=== PATIENT | female | born 1950 | race African-American/Black ===

== ENCOUNTER 2016-12-22 13:18 | Inpatient (IN) | payer MEDICARE, OTHER ==
[~2016-12-22] VITALS: Ht 172.7 cm; Wt 92.6 kg
--- NOTE | ~2016-12-22 | PR ---
[place], [place] PROGRESS NOTE NAME: CRAIG CULVER [facility] #: [id number] UNIT #: [id number] ROOM: 311 DOCTOR: RAMSES WHITFIELD BIRTHDATE: [birth year] DOS: 12/25/2016 CHIEF COMPLAINT: "This morning I got no sleep last night." SUMMARY OF THE VISIT: Staff report that she did have a good day yesterday and throughout the night, she did well. She is alert and oriented times 3. Mood is appropriate. Affect is appropriate. She did get up this morning and have breakfast, but then went directly back to bed. PLAN: We will check her valproic acid level in the morning just to continue to get baseline labs. Medication adjustments were made yesterday. We will give her chance to adjust to those before making any further changes and continue to try to engage her in individual and villalobos milieu, discharging her to the least restrictive environment as soon as she is psychiatrically stable. Ramses Whitfield NP CM:PNTRANS [phone] RAMSES WHITFIELD 12/25/16 1425 interface
--- NOTE | ~2016-12-22 | PR ---
[place], [place] PROGRESS NOTE NAME: CRAIG CULVER [facility] #: [id number] UNIT #: [id number] ROOM: 311 DOCTOR: RAMSES WHITFIELD BIRTHDATE: [birth year] DOS: 12/24/2016 CHIEF COMPLAINT: This morning "thank you sweetheart." SUMMARY OF THE VISIT: She was seated in the dining room where she was eating breakfast. Her voice is very low tone. She says that she is having dizziness and nausea, that she did not sleep last night. She states that she had a conflict with her roommate. They kept her up last night. She also reports that she has recurrent urinary tract infections. She did receive treatment for urinary tract infection on admission here. She was just started on Trintellix yesterday and given the fact that she just started the Trintellix yesterday and that she had some issues with her roommate last night, it is no wonder if she did not get much sleep. PLAN: We will go ahead and monitor her and see if the Trintellix helps her to get some sleep tonight, perhaps change her room if we have to. She is willing to have cranberry juice on her tray a couple of times a day and so we will talk to dietary about doing that, as far as recurrent urinary tract infections. We will engage her in individual and villalobos milieu and discharge her back to her long-term care facility when she is psychiatrically stable. Ramses Whitfield NP CM:PNSALLIE [phone] RAMSES WHITFIELD 12/24/16 1247 interface
--- NOTE | ~2016-12-22 | PR ---
[place], [place] PROGRESS NOTE NAME: CRAIG CULVER [facility] #: [id number] UNIT #: [id number] ROOM: 311 DOCTOR: RAMSES WHITFIELD BIRTHDATE: [birth year] DOS: 12/30/2016 INTERVAL NOTE. CHIEF COMPLAINT: "I had a bad night." SUMMARY OF THE VISIT: She was seen in the hallway. We went to a quiet place so that she could further explain herself. She stated that she was up and down all night that she did not like the way that the new medication was making her feel. She said that she did not like the way it made her body feel. Staff reports that she was pleasant in the evening, still a little tearful at times and she is still showing some anxiety. Her mood and affect are appropriate. She is denying any audio or visual hallucinations. PLAN: We will discontinue the Klonopin does not seem to be agreeing with her and is actually increasing her anxiety and start her on Ativan 1 mg p.o. straight at bedtime to help her to sleep and to decrease her anxiety. Continue to engage her in individual and villalobos milieu and discharge her to the least restrictive environment when she is psychiatrically stable. Ramses Whitfield NP CM:MARIO [phone] RAMSES WHITFIELD 12/30/16 234 interface
--- NOTE | ~2016-12-22 | PR ---
[place], [place] PROGRESS NOTE NAME: CRAIG CULVER [facility] #: [id number] UNIT #: [id number] ROOM: 311 DOCTOR: RAMSES WHITFIELD BIRTHDATE: [birth year] DOS: 01/02/2017 CHIEF COMPLAINT: "I participated in new groups this weekend." SUMMARY OF THE VISIT: The patient was seated on the side of her bed when I initially walked into the room. She was smiling, greeted me and eventually as we started talking, she started talking about her son and became tearful. Given the past that she feels would have taken care of her and not placed her in the long term and the daughter who was not overly involved. MENTAL STATUS: She is alert and oriented x 3. Her mood is mildly depressed, but she was tearful without any realty tears. She continues to state that she is not sleeping through the night, although staff does state that they see her sleeping. She says that she wakes up and then she starts thinking about her situation. Thoughts are going to her head and she cannot get back to sleep. PLAN: I have increased her Remeron to 22.5. We will also get a valproic acid level since her last one was on the . We are planning to discharge her to [facility] either Monday or Monday. We will continue to engage her in individual and villalobos milieu and discharge her to the least restrictive environment when she is psychiatrically stable. Ramses Whitfield NP CM:PNSALLIE [phone] RAMSES WHITFIELD 01/02/17 1039 interface
--- NOTE | ~2016-12-22 | PR ---
[place], [place] PROGRESS NOTE NAME: CRAIG CULVER [facility] #: [id number] UNIT #: [id number] ROOM: 311 DOCTOR: KIKI MORENO BIRTHDATE: [birth year] DOS: 01/01/2017 CHIEF COMPLAINT: "Good morning." SUMMARY OF VISIT: The patient was assessed in her room where she engaged readily in conversation, readily awoke, states that her sleep is much improved. Appetite is good, feels that her depression is under control, still complaining of underlying anxiety at times. It should be noted that the nurses state that she wakes up several times throughout the night, asking for more Ativan or pain meds, but then within 15-20 minutes she is back to sleep. MENTAL STATUS: Alert and oriented to person, place, approximate time. Mood definitely euthymic. Affect appropriate. No overt signs of auditory or visual hallucinations, delusions, paranoia, supa or hypomania. PLAN: We are going to keep the Ativan where it is at night 1 mg only, this was recently switched from Klonopin. She is on a lot of medications. Definitely some polypharmacy going on. I am trying to keep this as simple as possible, but still keep her symptoms under control. We will continue with Risperdal, Remeron and Depakote. Her most recent valproic acid level was 79.3 and that was on 12/26/2016. Overall, I think she is doing significantly better. She is redirectable, hope is to discharge may be as soon as tomorrow since she had another good night sleep since I changed to Ativan last night. OTTONIEL MORENO CNP CM:PNTRANS [phone] KIKI MORENO 01/02/17 0033 interface
--- NOTE | ~2016-12-22 | PR ---
[place], [place] PROGRESS NOTE NAME: CRAIG CULVER [facility] #: [id number] UNIT #: [id number] ROOM: 311 DOCTOR: KAMERON CRAFT MD BIRTHDATE: [birth year] DOS: 12/28/2016 CHIEF COMPLAINT: "I slept a little better, but I woke up once or twice." SUMMARY OF THE VISIT: The patient was interviewed as she rested in bed. She reported to me that she has been sleeping much better since the Remeron has been added. Her sleep last night; however, was not as good as the previous night and the only change was Benadryl was added which I think caused a paradoxical response. As far as her depression goes, she reports that she is improving day by day, but still feels depressed and overwhelmed. client services account manager report that her insurance policy clerk has noted that she has voiced frustration with her current living situation and feels left out and ignored. She may do better with a different placement. MENTAL STATUS: She is alert and oriented with some time gaps. Mood still is depressed, but improving. There is no supa or hypomania. There are no auditory or visual hallucinations. No delusions or paranoia are present. Memory is fairly well intact. PLAN: I will discontinue Benadryl, maintain Remeron at 15 mg at bedtime, add Rozerem 8 mg at bedtime, continue to engage in individual and villalobos milieu activities with the plan to discharge to the least restrictive environment when psychiatrically stable. KAMERON CRAFT MD CM:PNTRANS [phone] KAMERON CRAFT MD 12/28/161937 interface
--- NOTE | ~2016-12-22 | PR ---
[place], [place] PROGRESS NOTE NAME: CRAIG CULVER [facility] #: [id number] UNIT #: [id number] ROOM: 311 DOCTOR: MEME WHITFIELD BIRTHDATE: [birth year] DOS: 12/27/2016 CHIEF COMPLAINT: This morning, "I am feeling better." SUMMARY OF THE VISIT: She was resting in bed when I came in to visit her. She did awaken easily. States that she is still sad, but pretty much talked to me with her eyes closed lying in the bed. Staff reports that she is doing better, that she has had no complaints of any audio or visual hallucinations. She has had no supa or hypomania. I reviewed her labs that she had this morning, nothing significant is showing on her lab work. Yesterday, the doctor came and discontinued her Trintellix and started her on Remeron at bedtime, also increased her Risperdal. PLAN: We will go ahead and monitor and make sure that those medications are working well for her. The plan is to continue to titrate her Risperdal and her antidepressants to treat her sad mood. We will continue to engage her in individual and villalobos milieu and discharge her to the least restrictive environment hopefully as soon as or Monday when she is psychiatrically stable. Meme Whitfield NP CM:PNSALLIE [phone] MEME WHITFIELD 12/27/16 1146 interface
--- NOTE | ~2016-12-22 | PR ---
[place], [place] PROGRESS NOTE NAME: CRAIG CULVER UNIT #: [id number] ROOM: 311 DOCTOR: KAMERON CRAFT MD BIRTHDATE: [birth year] DOS: 12/29/2016 CHIEF COMPLAINT: "I slept on and off. My depression and anxiety are still there." SUMMARY OF THE VISIT: The patient was interviewed in her bedroom. She was sitting on the edge of the bed waiting for me. She reports that she slept better than she did upon admission, but her sleep was still disturbed and she tossed and turned. She rates her depression as improving, but notes that it is still present and she finds herself ____ most times during the day. She also notes increasing anxiety throughout the day. She is tolerating the current medication regimen well and notes no side effects and is willing to allow me to adjust her medicines accordingly. I did discuss with her the possibility of alternative placement and discussed with her the possibility of going to [facility], which she is open to. I will discuss this further with forensic social worker. MENTAL STATUS: She is alert and oriented with some minor gaps. Mood is overwhelmingly depressed with anxious overtones. She reports that the anxiety is overriding throughout the day. There are select patients on the unit that do tend to get on her nurse per her report and I did discuss with her the fact that I will have nursing monitor this situation. There is no overt supa or hypomania. There are no overt auditory or visual hallucinations. No delusions. No paranoias present. Memory for the most part is intact. PLAN: I will discontinue her Rozerem in lieu of Klonopin 0.5 mg in the morning and 1 mg at bedtime. This should aid sleep as well as decrease her overriding anxiety. I will maintain her current antidepressant regimen. I will discuss with forensic social worker the possibility of alternative placement. She did say she is open to the possibility of leaving here and going to some place such as [facility] where there is a younger subpopulation there that she can interact with. We will continue to engage her in individual and villalobos milieu activity with the plan to discharge to the least restrictive environment when psychiatrically stable. [place], [place] PROGRESS NOTE NAME: ABIOLACRAIG Nguyen UNIT #: [id number] ROOM: [facility] DOCTOR: KAMERON CRAFT MD BIRTHDATE: [birth year] KAMERON CRAFT MD CM:PNTRANS [phone] KAMERON CRAFT MD 12/29/16 1354 interface
--- NOTE | ~2016-12-22 | PR ---
[place], [place] PROGRESS NOTE NAME: CRAIG CULVER [facility] #: [id number] UNIT #: [id number] ROOM: 311 DOCTOR: KIKI MORENO BIRTHDATE: [birth year] DOS: 12/31/2016 CHIEF COMPLAINT: "Good morning." SUMMARY OF VISIT: The patient was assessed in her room where she was sleeping soundly. She woke easily engaged in conversation stated that she actually slept pretty good last night. This was confirmed by nursing. Apparently, the Klonopin had been discontinued and changed over to 1 mg of Ativan and this is the first time that she has significant amount of sleep last night apparently 9 hours' worth. The patient states appetite is good. Depression seems to be improving. MENTAL STATUS: The patient is alert and oriented to person, place, approximate time. Mood trending towards euthymic. Affect is appropriate. No overt signs of auditory or visual hallucinations, delusions, paranoia, supa or hypomania. PLAN: Again, take 1 mg of Ativan at bedtime, seems to have helped with her sleep and her anxiety since she is bipolar. I am going to continue with this medication for now, we will continue to try to engage in individual and villalobos milieu therapy. I would like to try to simplify some of her medications if possible. She is currently on 28 different medications between the Risperdal, which is helping with her bipolar mood lability, psychosis and the Remeron should be helping with some sleep along with the Ativan, I see in Depakote as well. We will need to make sure we have a current valproic acid level in her. Also, see how she does over the next 24 hours, get a couple good night sleep and then look and see if there is a way that we can simplify some other meds if possible. OTTONIEL MORENO CNP CM:MARIO 0 2 KIKI MORENO 01/01/17210 interface
--- NOTE | ~2016-12-22 | WRIGHTHP ---
[place], [place] PATIENT HISTORY AND PHYSICAL EXAM NAME: TIMUR CULVERKWADWO Patrick UNIT #: [id number] ROOM: 311 DOCTOR: KAMERON WELLINGTON MD BIRTHDATE: [birth year] DOS: 12/23/2016 INITIAL PSYCHIATRIC EVALUATION CHIEF COMPLAINT: "Oh Dr. Wellington, I have just been so depressed, it has been at least a month." HISTORY OF PRESENT ILLNESS: This is a 66-year-old black female who is well known to me from her stay at [facility]. The patient has a lengthy history of schizoaffective disorder and has a significant history of auditory and visual hallucinations as well as paranoia. However, most recently, she has been increasingly depressed with difficulty falling asleep, sustaining sleep and waking up early. She also endorses anergia, anhedonia, hopeless, helpless feelings, crying spells, and inability to cope. The staff at the [facility] have noticed a substantial decline in her ADLs and her overall ability to relate to others. Given the severity of her decline, it was felt that inpatient stabilization was warranted to prevent harm to self or others. PAST MEDICAL HISTORY: Significant for chronic pain syndrome, cervical, thoracic disk displacement, hypertension, GERD, osteoarthritis. MENTAL STATUS: The patient is alert and oriented to person, place, and time. Mood is overwhelmingly depressed. Affect is flat, blunted, and constricted and she endorses multiple neurovegetative symptoms. There is a slight hint of paranoia and she endorses some hallucinations, but was very guarded to give me any further information about them. There certainly is no hypomania or supa. Memory is actually fairly well intact. DIAGNOSIS: Schizoaffective disorder. PLAN: I have maintained her on Risperdal, which she has been doing quite well at the assisted. I added Trintellix 10 mg at bedtime to combat the depression. She tolerated this well last night and reports no side effects upon awakening, so I will increase the Trintellix dose to 20 mg at bedtime and monitor. We will have her engage in individual and villalobos milieu activities with the ultimate plan to return back to [facility] when psychiatrically stable. [place], [place] PATIENT HISTORY AND PHYSICAL EXAM NAME: ABIOLACRAIG UNIT #: [id number] ROOM: [facility] DOCTOR: KAMERON WELLINGTON MD BIRTHDATE: [birth year] KAMERON WELLINGTON MD CM:HISPHYS:PATIENT HISTORY AND PHYSICAL EXAMINATION [phone] KAMERON WELLINGTON MD 12/23/16 1053 interface
--- NOTE | ~2016-12-22 | PR ---
[place], [place] PROGRESS NOTE NAME: CRAIG CULVER [facility] #: [id number] UNIT #: [id number] ROOM: 311 DOCTOR: KAMERON WELLINGTON MD BIRTHDATE: [birth year] DOS: 12/26/2016 CHIEF COMPLAINT: "Oh Dr. Wellington, I need help, I am not sleeping at night and I am still so depressed." SUMMARY OF THE VISIT: The patient was interviewed in the dining area. She reported to me that she is having an extreme difficult time sleeping. She notes difficulty falling asleep, staying asleep and waking up early and when she is awake and she cannot fall back to sleep, needless to say when she does wake up to start the day she is extremely fatigued. She feels hopeless and helpless and was on the verge of tears as I interviewed her. She does admit to fleeting suicidal thoughts and fears that if things do not turn around, she has no hope to get better. She is willing to allow me to adjust her medications accordingly. MENTAL STATUS: She is alert and oriented. Mood does seem to be overwhelmingly depressed, and she is very despondent. She endorses multiple neurovegetative symptoms. There is no hypomania or supa noted. There is some mild paranoia noted. She convincingly denies medication side effects. PLAN: At this point, I will go ahead and discontinue the Trintellix since it does not seem to be impacting positively on her mood. Instead, I will start Remeron 15 mg at bedtime as a more sedating antidepressant. I will also increase her Risperdal from 1 mg twice daily to 1 mg in the morning and 2 mg at night, increasing the nighttime dose of medications to attempt to break the cycle of not sleeping and also impact positively on her mood. We will engage her in individual and villalobos milieu activity with the ultimate plan to return back to [facility] when psychiatrically stable. KAMERON WELLINGTON MD CM:PNTRANS [phone] KAMERON WELLINGTON MD 12/26/16 1723 interface
[2016-12-22] MEDS ORDERED: ASPIRIN81 MG PO (13:48)
[2016-12-22] MEDS ORDERED: CLARITIN10 MG PO (13:49)
[2016-12-22] MEDS ORDERED: B-121000 MCG PO (13:50)
[2016-12-22] MEDS ORDERED: DEPAKOTE250 MG PO (13:52)
[2016-12-22] MEDS ORDERED: DEPAKOTE500 MG PO (13:53)
[2016-12-22] MEDS ORDERED: LAMICTAL100 MG PO (13:55)
[2016-12-22] MEDS ORDERED: MICROZIDE12.5 M1 PO (13:55)
[2016-12-22] MEDS ORDERED: PROTONIX40 MG PO (13:56)
[2016-12-22] MEDS ORDERED: MULTIVITAMIN1 TAB PO (13:56)
[2016-12-22] MEDS ORDERED: TRAMADOL HYDRO100 MG PO (13:57)
[2016-12-22] MEDS ORDERED: RISPERDAL1 M1 PO (13:58)
[2016-12-22] MEDS ORDERED: LOPRESSOR25 MG PO (13:59)
[2016-12-22] MEDS ORDERED: POTASSIUM CHLO20 ME3 PO (14:00)
[2016-12-22] MEDS ORDERED: MECLIZINE HCL12.5 MG PO (14:00)
[2016-12-22] MEDS ORDERED: COLACE100 MG PO (14:01)
[2016-12-22] MEDS ORDERED: IBUPROFEN600 MG PO (14:01)
[2016-12-22] MEDS ORDERED: CALCIUM + VITA1 EAC2 PO (14:03)
[2016-12-22 17:54] VITALS: BP 140/86
[2016-12-22 18:43] LABS: HEMOGLOBIN A1c 5.7 % (4.8-5.6)
[2016-12-22 18:46] LABS: ALBUMIN 3.4 gm/dl (3.1-4.5); BILIRUBIN, TOTAL 0.2 mg/dl (0.2-1.0); POTASSIUM 4.1 mmol/L (3.5-5.1); TOTAL PROTEIN 6.8 gm/dL (6.4-8.2)
[2016-12-22 19:01] VITALS: BP 140/86
[2016-12-22 19:05] LABS: BASO % 0.4 % (0.0-1.0); EOS # 0.1 10*3/uL (0.0-0.4); EOS % 1.6 % (1.0-4.0); HEMATOCRIT 42.2 % (37.0-47.0); HEMOGLOBIN 13.8 g/dl (12.0-16.0); IG # 0.1 10*3/uL (0.0-0.1); LYMPH # 2.3 10*3/uL (1.3-4.4); LYMPH % 34.2 % (27.0-41.0); MEAN CELL VOLUME 94.2 fl (81.0-99.0); MEAN CORPUSCULAR HGB 30.8 pg (27.0-31.0); MEAN CORPUSCULAR HGB CONC 32.7 g/dl (33.0-37.0); MEAN PLATELET VOLUME 9.6 fl (9.6-12.3); MONO # 0.6 10*3/uL (0.1-1.0); MONO % 8.5 % (3.0-9.0); NEUT # 3.6 10*3/uL (2.3-7.9); NEUT % 54.6 % (47.0-73.0); PLATELET COUNT AUTOMATED 187 10*3/uL (130-400); RED BLOOD COUNT 4.48 10*6/uL (4.10-5.10); RED CELL DISTRI WIDTH 12.1 % (0-14.5); WHITE BLOOD COUNT 6.7 10*3/uL (4.8-10.8)
[2016-12-22 19:23] LABS: VITAMIN D, 25-HYDROXY 28.2 ng/mL (30-100)
[2016-12-22 20:08] VITALS: BP 140/90
[2016-12-22 22:13] LABS: BILIRUBIN NEGATIVE (NEGATIVE); BLOOD NEGATIVE (NEGATIVE); CLARITY CLEAR (CLEAR); COLOR YELLOW (YELLOW); GLUCOSE TRACE (NEGATIVE); KETONE NEGATIVE (NEGATIVE); LEUKO ESTERASE TRACE (NEGATIVE); NITRITE NEGATIVE (NEGATIVE); PH 6.5 (5.0-9.0); PROTEIN NEGATIVE (NEGATIVE); SPECIFIC GRAVITY 1.015 (1.005-1.030); UROBILINOGEN 0.2 E.U./dl (0.2-1.0)
[2016-12-22 22:40] LABS: BACTERIA 3+; EPITHELIAL CELLS 20-25; URINE REFLEX COMMENT YES (NO)
[2016-12-23 08:02] VITALS: BP 138/88
[2016-12-23 20:00] VITALS: BP 126/73
[2016-12-24 08:02] VITALS: BP 123/86
[2016-12-24 20:29] VITALS: BP 141/78
[2016-12-25 07:59] VITALS: BP 133/81
[2016-12-25 18:26] LABS: BILIRUBIN NEGATIVE (NEGATIVE); BLOOD NEGATIVE (NEGATIVE); CLARITY CLEAR (CLEAR); COLOR YELLOW (YELLOW); GLUCOSE TRACE (NEGATIVE); KETONE NEGATIVE (NEGATIVE); LEUKO ESTERASE 2+ (NEGATIVE); NITRITE NEGATIVE (NEGATIVE); PH 6.5 (5.0-9.0); PROTEIN NEGATIVE (NEGATIVE); UROBILINOGEN 0.2 E.U./dl (0.2-1.0)
[2016-12-25 18:33] LABS: BACTERIA 1+; URINE REFLEX COMMENT YES (NO)
[2016-12-25 20:00] VITALS: BP 138/94
[2016-12-26 08:00] VITALS: BP 120/70
[2016-12-26 21:34] VITALS: BP 142/81
[2016-12-27 07:02] LABS: POTASSIUM 4.3 mmol/L (3.5-5.1)
[2016-12-27 08:14] VITALS: BP 102/68
[2016-12-27 20:11] VITALS: BP 119/53
[2016-12-28 09:26] VITALS: BP 127/76
[2016-12-28 19:53] VITALS: BP 115/70
[2016-12-29 07:37] VITALS: BP 136/91
[2016-12-29 20:04] VITALS: BP 119/71
[2016-12-30 06:55] VITALS: BP 121/77
[2016-12-30 20:33] VITALS: BP 119/71; BP 129/67
[2016-12-31 07:34] VITALS: BP 117/74
[2016-12-31 20:05] VITALS: BP 116/71
[2017-01-01 08:07] VITALS: BP 130/70
[2017-01-01 20:30] VITALS: BP 134/77
[2017-01-02 09:24] VITALS: BP 132/90
[2017-01-02 19:44] VITALS: BP 134/87
[2017-01-03] MEDS ORDERED: DIVALPROEX SOD500 MG PO (07:46)
[2017-01-03] MEDS ORDERED: VITAMIN D50000 I3 PO (07:46)
[2017-01-03] MEDS ORDERED: RISPERIDONE1 MG PO (07:46)
[2017-01-03] MEDS ORDERED: LAMOTRIGINE100 MG PO (07:46)
[2017-01-03] MEDS ORDERED: B12,B-12,B 12500 MC1 PO (07:46)
[2017-01-03] MEDS ORDERED: DIVALPROEX SOD250 MG PO (07:46)
[2017-01-03] MEDS ORDERED: MIRTAZAPINE45 MG PO (07:46)
[2017-01-03] MEDS ORDERED: LORAZEPAM1 MG PO (07:46)
[2017-01-03 08:00] VITALS: BP 151/84
[2017-01-03 20:14] VITALS: BP 122/67
[2017-01-04 07:31] VITALS: BP 114/74
== END 2017-01-04 11:04 | disposition other institution (70) | DRG 885 ==
LOC: 3N 13:18
PROVIDERS: Hospitalist; Internal Medicine; Psychiatry & Neurology Psychiatry
DX: F31.30 Bipolar disorder, current episode depressed, mild or moderate severity, unspecified (principal); N17.0 Acute kidney failure with tubular necrosis; F25.9 Schizoaffective disorder, unspecified; M50.23 Other cervical disc displacement, cervicothoracic region; I10 Essential (primary) hypertension; G89.4 Chronic pain syndrome; K21.9 Gastro-esophageal reflux disease without esophagitis; M19.90 Unspecified osteoarthritis, unspecified site; K59.00 Constipation, unspecified; R47.1 Dysarthria and anarthria; F41.1 Generalized anxiety disorder; G47.00 Insomnia, unspecified; Z88.6 Allergy status to analgesic agent; Z79.82 Long term (current) use of aspirin; Z79.899 Other long term (current) drug therapy; Z82.49 Family history of ischemic heart disease and other diseases of the circulatory system; Z95.2 Presence of prosthetic heart valve; Z79.1 Long term (current) use of non-steroidal anti-inflammatories (NSAID)

== ENCOUNTER 2018-03-16 15:35 | Inpatient (IN) | payer MEDICARE, OTHER ==
[~2018-03-16] VITALS: Ht 172.7 cm; Wt 106.6 kg
--- NOTE | ~2018-03-16 | PR ---
[place], [place] PROGRESS NOTE NAME: CRAIG CULVER [facility] #: [id number] UNIT #: [id number] ROOM: 310 DOCTOR: KAMERON CRAFT MD BIRTHDATE: [birth year] DOS: 03/24/2018 CHIEF COMPLAINT: "That increase seem to help, I think I feel a little better." SUMMARY OF THE VISIT: The patient was interviewed as she was sitting in the dining area, watching television. She stopped and engaged in conversation with me, reporting that she is feeling better. She slept well and feels a little less anxious with the increase in the medication. She convincingly denies medication side effects, noting no sedation or somnolence. MENTAL STATUS: She is alert and oriented with some time gaps. Mood does seem to be improving and is more euthymic. Affect is appropriate. There is no supa or hypomania. There are no overt auditory or visual hallucinations. No delusions, no paranoia. Short, intermediate, and long-term memory for the most part are intact. PLAN: I will maintain her current psychotropic regimen, continue to engage in individual and villalobos milieu activity, returning then to the least restrictive environment when psychiatrically stable. Above note reviewed. Agree with observations, recommendations, and overall treatment plan. KAMERON CRAFT MD CM:PNTRANS [phone] KAMERON CRAFT MD 04/19/18 2243 interface
--- NOTE | ~2018-03-16 | PN ---
[place], [place] PROGRESS NOTE NAME: CRAIG CULVER UNIT #: [id number] ROOM: 310 DOCTOR: KAMERON CRAFT MD BIRTHDATE: [birth year] DATE: 03/21/[address] CRAFT 04/19/18 1002: Above note reviewed. Agree with observations, recommendations, and overall treatment plan. KAMERON CRAFT MD CM:PNTRANS [phone] KAMERON CRAFT MD 04/25/18 0750 RONNIE LIVINGSTON MIS.LLR
--- NOTE | ~2018-03-16 | PR ---
[place], [place] PROGRESS NOTE NAME: CRAIG CULVER [facility] #: [id number] UNIT #: [id number] ROOM: 310 DOCTOR: KAMERON CRAFT MD BIRTHDATE: [birth year] DOS: 03/25/2018 CHIEF COMPLAINT: "Oh, I am more anxious now." SUMMARY OF THE VISIT: The patient was interviewed as and she was resting quietly in her bed. She reports that with me lowering the Vistaril, again her anxiety level peaked. We talked about how we were concerned that it could be affecting her blood pressure. I did talk to the nursing and nursing reports her blood pressure has releveled off, so we will rechallenge her with a slightly higher dose to see if we can strike a compromise. MENTAL STATUS: She is alert and oriented with some time gaps. Mood does seem to be trending towards euthymia. Affect is more appropriate. There is no supa, hypomania or psychosis. Short-term memory has just mild gaps; otherwise, she is intact. PLAN: I will increase the Vistaril from 50 mg 3 times a day to 75 mg 3 times a day. Support monitor. Above note reviewed. Agree with observations, recommendations, and overall treatment plan. KAMERON CRAFT MD CM:PNTRANS [phone] KAMERON CRAFT MD 04/19/18 2243 interface
--- NOTE | ~2018-03-16 | PR ---
[place], [place] PROGRESS NOTE [id number] UNIT #: [id number] ROOM: 310 DOCTOR: KAMERON CRAFT MD BIRTHDATE: [birth year] DOS: 03/19/2018 CHIEF COMPLAINT: "Oh, I got into trouble because I did not want to talk to that one woman." SUMMARY OF THE VISIT: The patient was interviewed in the dining area. She was engaging in activity. She did report that she is feeling somewhat shaky and tremorous and very anxious. She does report though that she likes the ____, was hoping to be able to get better and go back there soon. She voiced no other issues. MENTAL STATUS: She is alert and oriented to person, place, approximate to time. Mood does seem to be gradually trending towards euthymia. Affect is more appropriate. There is no supa or hypomania. There is still residual delusion present. Short-term memory has mild gaps. PLAN: I will add Artane 2 mg t.i.d. to decrease some of the tremor and to help offset any side effects that the Invega. I will consider increasing the dose of the Invega if needed. Engage in individual and villalobos milieu activity, returning to the least restrictive environment when stable. KAMERON CRAFT MD CM:PNTRANS [phone] KAMERON CRAFT MD 04/19/18 2244 interface
--- NOTE | ~2018-03-16 | PR ---
[place], [place] PROGRESS NOTE NAME: CRAIG CULVER UNIT #: [id number] ROOM: 310 DOCTOR: KAMERON CRAFT MD BIRTHDATE: [birth year] DOS: ADDENDUM Please add my addendum for the progress notes dated 03/20/2018, 03/21/2018 and 03/22/2018. KAMERON CRAFT MD CM:PNTRANS 01 51 KAMERON CRAFT MD 04/25/18 0749 RONNIE LIVINGSTON MIS.LLR
--- NOTE | ~2018-03-16 | PN ---
[place], [place] PROGRESS NOTE NAME: CRAIG CULVER UNIT #: [id number] ROOM: 310 DOCTOR: KAMERON CRAFT MD BIRTHDATE: [birth year] DATE: 03/22/[address] CRAFT 04/19/18 1002: Above note reviewed. Agree with observations, recommendations, and overall treatment plan. KAMERON CRAFT MD CM:PNTRANS 1002 0750 KAMERON CRAFT MD 04/25/18 0751 RONNIE LIVINGSTON MIS.LLR
--- NOTE | ~2018-03-16 | PR ---
[place], [place] PROGRESS NOTE NAME: CRAIG CULVER [facility] #: [id number] UNIT #: [id number] ROOM: 310 DOCTOR: KAMERON WELLINGTON MD BIRTHDATE: [birth year] DOS: 03/23/2018 CHIEF COMPLAINT: "My anxiety is still there, but I am getting better Dr. Wellington, thank you for caring." SUMMARY OF THE VISIT: The patient was interviewed as she had finished her breakfast and was sitting watching television. She stopped and engaged in conversation. She reports that she is still feeling anxiety, but this is much less than upon admission. Her mood is lifting and she is noticing more stability. She notices that the side effects that were prevalent earlier in the week have dissipated. She voices no other complaints. MENTAL STATUS: She is alert and oriented with some time gaps, but overall fairly intact. Mood does seem to be trending towards euthymia. Affect is more appropriate. There is no supa, hypomania or psychosis. Short term memory has gaps. PLAN: I will renew her Ativan in case she requires intervention, increase her Vistaril from 50 mg 4 times a day to 100 mg 3 times a day. I will recheck a valproic acid level in the a.m. to ensure that it is therapeutic. Above note reviewed. Agree with observations, recommendations, and overall treatment plan. KAMERON WELLINGTON MD CM:PNTRANS [id number] KAMERON WELLINGTON MD 04/19/18 2243 interface
--- NOTE | ~2018-03-16 | PN ---
[place], [place] PROGRESS NOTE NAME: CRAIG CULVER UNIT #: [id number] ROOM: 310 DOCTOR: KAMERON CRAFT MD BIRTHDATE: [birth year] DATE: 03/20/[address] CRAFT 04/19/18 1002: Above note reviewed. Agree with observations, recommendations, and overall treatment plan. KAMERON CRAFT MD CM:PNTRANS [id number] KAMERON CRAFT MD 04/25/18 0749 RONNIE LIVINGSTON MIS.LLR
--- NOTE | ~2018-03-16 | DS ---
[place], [place] DISCHARGE SUMMARY NAME: CRAIG CULVER [facility] #: [id number] UNIT #: [id number] ROOM: 310 DOCTOR: KAMERON CRAFT MD BIRTHDATE: [birth year] DOS: 03/26/2018 CHIEF COMPLAINT: "I can't believe that they sent me here." HISTORY OF PRESENT ILLNESS: This is a 67-year-old black female well known to me from her previous admissions here as well as her stay at [facility] [place]. The patient is admitted now to the [facility] due to an acute mental status change. The patient has become increasingly paranoid and believes she is being poisoned there and has been refusing to take all of her medications. She has been verbally combative with the nursing staff there and has been much more easily agitated and confrontational, this is a bryant contrast to her normal behavior. She feels that everyone is out to get her and is trying to hurt her there. Because of the severity of her paranoia and her combativeness, it was felt that an inpatient stabilization was warranted. The patient was admitted then to rule out organic factors, to stabilize on medication, to engage in individual and villalobos milieu activity, determining the least restrictive environment to which she could be returning to. SUMMARY OF HOSPITAL COURSE: The patient was admitted to the unit where her Lamictal was lowered from 100 mg twice a day to 50 mg twice daily. Depakote was maintained at 250 mg twice daily and 500 mg at bedtime. She had her Risperdal discontinued in lieu of Invega to utilize something a little more stronger in a once a day dosing as opposed to twice a day dosing. She tolerated the Invega well. She did have some mild extrapyramidal symptoms in the form of parkinsonian symptoms. Artane was added with good results. The patient improved dramatically with the use of the Invega. Toward the latter part of her stay, her chief complaint was overriding anxiety and social phobia. The patient does have a history of oftentimes misusing or miswanting benzos, to avoid this I did utilize Vistaril at the dose of 50 mg 3 times a day, it was not strong enough. When I increased the dose to 100 mg 3 times a day, she did have some mild lightheadedness and unsteadiness. The dose was ultimately stabilized at 75 mg 3 times daily with good results. The patient had sufficiently improved to return back to [facility] [place] where I will follow her upon her readmission there. MENTAL STATUS AT DISCHARGE: She is alert and oriented to person, place and very approximate to time. Mood is strongly trending towards euthymia. Affect is more appropriate. There is no supa, hypomania or psychosis at the present time. Short-term memory has mild gaps, otherwise she is intact. FINAL DIAGNOSIS: Bipolar type 1, depressed with psychotic features. PLAN: She is to return to [facility] [place]. [facility]. I will be the treating psychiatrist upon her readmission there. [place], [place] DISCHARGE SUMMARY NAME: CRAIG CULVER Patrick [facility] #: [id number] UNIT #: [id number] ROOM: 310 DOCTOR: KAMERON CRAFT MD BIRTHDATE: [birth year] KAMERON CRAFT MD CM:PAULETTE [id number] KAMERON CRAFT MD 03/26/18 0933 interface
[~2018-03-16 15:35] MED LIST: ASPIRIN81 MG PO; B-121000 MCG PO; B12,B-12,B 12500 MC1 PO; CALCIUM + VITA1 EAC2 PO; CLARITIN10 MG PO; COLACE100 MG PO; DEPAKOTE250 MG PO; DEPAKOTE500 MG PO; DIVALPROEX SOD250 MG PO; DIVALPROEX SOD500 MG PO; IBUPROFEN600 MG PO; LAMICTAL100 MG PO; LAMOTRIGINE100 MG PO; LOPRESSOR25 MG PO; LORAZEPAM1 MG PO; MECLIZINE HCL12.5 MG PO; MICROZIDE12.5 M1 PO; MIRTAZAPINE45 MG PO; MULTIVITAMIN1 TAB PO; POTASSIUM CHLO20 ME3 PO; PROTONIX40 MG PO; RISPERDAL1 M1 PO; RISPERIDONE1 MG PO; TRAMADOL HYDRO100 MG PO; VITAMIN D50000 I3 PO
[2018-03-16] MEDS ORDERED: ATIVAN0.5 MG PO (18:10)
[2018-03-16] MEDS ORDERED: VISTARIL50 MG PO (18:11)
[2018-03-16] MEDS ORDERED: REFRESH LIQUIGE15 M1 OP (18:12)
[2018-03-16] MEDS ORDERED: REMERON SOLTAB45 MG PO (18:13)
[2018-03-16] MEDS ORDERED: REMERON30 M1 PO (18:14)
[2018-03-16] MEDS ORDERED: DEPAKOTE250 MG PO (18:16)
[2018-03-16] MEDS ORDERED: LOSARTAN POTASS50 M1 PO (18:19)
[2018-03-16] MEDS ORDERED: COGENTIN0.5 MG PO (18:20)
[2018-03-16] MEDS ORDERED: RISPERDAL1 M1 PO (18:25)
[2018-03-16] MEDS ORDERED: HYDROCHLOROTH12.5 M3 PO (18:28)
[2018-03-16] MEDS ORDERED: IRON325 M1 PO (18:28)
[2018-03-16 19:07] VITALS: BP 129/81
[2018-03-16 19:40] VITALS: BP 129/81
[2018-03-16 20:03] VITALS: BP 129/81
[2018-03-17 06:45] LABS: BASO % 0.2 % (0.0-1.0); EOS # 0.1 10*3/uL (0.0-0.4); EOS % 2.3 % (1.0-4.0); HEMATOCRIT 37.6 % (37.0-47.0); HEMOGLOBIN 12.1 g/dl (12.0-16.0); LYMPH # 2.3 10*3/uL (1.3-4.4); LYMPH % 43.1 % (27.0-41.0); MEAN CELL VOLUME 94.2 fl (81.0-99.0); MEAN CORPUSCULAR HGB 30.3 pg (27.0-31.0); MEAN CORPUSCULAR HGB CONC 32.2 g/dl (33.0-37.0); MEAN PLATELET VOLUME 8.5 fl (9.6-12.3); MONO # 0.5 10*3/uL (0.1-1.0); MONO % 9.4 % (3.0-9.0); NEUT # 2.4 10*3/uL (2.3-7.9); NEUT % 44.4 % (47.0-73.0); PLATELET COUNT AUTOMATED 124 10*3/uL (130-400); RED BLOOD COUNT 3.99 10*6/uL (4.10-5.10); RED CELL DISTRI WIDTH 12.1 % (0-14.5); WHITE BLOOD COUNT 5.3 10*3/uL (4.8-10.8)
[2018-03-17 07:01] LABS: ALBUMIN 3.1 gm/dl (3.1-4.5); CREATININE 1.5 mg/dL (0.55-1.02); POTASSIUM 4.1 mmol/L (3.5-5.1); TOTAL PROTEIN 6.1 gm/dL (6.4-8.2)
[2018-03-17 07:11] LABS: THYROID STIM HORMONE (HS) 0.774 uIU/ml (0.358-4.75); VALPROIC ACID (DEPAKENE) 77.6 ug/ml (50-100)
[2018-03-17 07:54] VITALS: BP 135/72
[2018-03-17 08:14] LABS: VITAMIN D, 25-HYDROXY 47.7 ng/mL (30-100)
[2018-03-17 19:55] VITALS: BP 134/68
[2018-03-18 07:14] LABS: BASO % 0.3 % (0.0-1.0); EOS # 0.1 10*3/uL (0.0-0.4); EOS % 1.6 % (1.0-4.0); HEMATOCRIT 41.4 % (37.0-47.0); HEMOGLOBIN 13.9 g/dl (12.0-16.0); LYMPH # 3.8 10*3/uL (1.3-4.4); LYMPH % 50.3 % (27.0-41.0); MEAN CORPUSCULAR HGB 31.2 pg (27.0-31.0); MEAN CORPUSCULAR HGB CONC 33.6 g/dl (33.0-37.0); MEAN PLATELET VOLUME 8.6 fl (9.6-12.3); MONO # 0.7 10*3/uL (0.1-1.0); MONO % 8.7 % (3.0-9.0); NEUT # 2.9 10*3/uL (2.3-7.9); NEUT % 38.4 % (47.0-73.0); PLATELET COUNT AUTOMATED 150 10*3/uL (130-400); RED BLOOD COUNT 4.45 10*6/uL (4.10-5.10); WHITE BLOOD COUNT 7.5 10*3/uL (4.8-10.8)
[2018-03-18 07:52] LABS: CREATININE 1.48 mg/dL (0.55-1.02)
[2018-03-18 08:02] VITALS: BP 134/76
[2018-03-18 19:54] VITALS: BP 130/74
[2018-03-19 08:09] VITALS: BP 154/76
[2018-03-19 20:08] VITALS: BP 127/64
[2018-03-20 08:02] VITALS: BP 123/79
[2018-03-20 19:47] VITALS: BP 124/79
[2018-03-21 07:34] VITALS: BP 128/74
[2018-03-21 19:40] VITALS: BP 146/89
[2018-03-22 07:34] VITALS: BP 118/61
[2018-03-22 09:00] VITALS: BP 108/60
[2018-03-22 19:49] VITALS: BP 120/67
[2018-03-23 06:47] LABS: BASO % 0.2 % (0.0-1.0); EOS # 0.1 10*3/uL (0.0-0.4); EOS % 1.3 % (1.0-4.0); HEMATOCRIT 38.8 % (37.0-47.0); HEMOGLOBIN 12.5 g/dl (12.0-16.0); LYMPH # 2.6 10*3/uL (1.3-4.4); LYMPH % 42.9 % (27.0-41.0); MEAN CELL VOLUME 95.6 fl (81.0-99.0); MEAN CORPUSCULAR HGB 30.8 pg (27.0-31.0); MEAN CORPUSCULAR HGB CONC 32.2 g/dl (33.0-37.0); MEAN PLATELET VOLUME 8.8 fl (9.6-12.3); MONO # 0.6 10*3/uL (0.1-1.0); MONO % 9.6 % (3.0-9.0); NEUT # 2.8 10*3/uL (2.3-7.9); NEUT % 45.7 % (47.0-73.0); PLATELET COUNT AUTOMATED 160 10*3/uL (130-400); RED BLOOD COUNT 4.06 10*6/uL (4.10-5.10); RED CELL DISTRI WIDTH 12.5 % (0-14.5)
[2018-03-23 07:05] VITALS: BP 134/75
[2018-03-23 07:12] LABS: CREATININE 1.45 mg/dL (0.55-1.02); POTASSIUM 4.6 mmol/L (3.5-5.1)
[2018-03-23 19:54] VITALS: BP 115/77
[2018-03-24 08:06] VITALS: BP 100/60
[2018-03-24 19:40] VITALS: BP 122/72
[2018-03-25 07:46] VITALS: BP 130/78
[2018-03-25 19:54] VITALS: BP 113/79
[2018-03-26 07:49] VITALS: BP 140/72
[2018-03-26] MEDS ORDERED: TRIHEXYPHEN2 MG/5 ML PO (08:31)
[2018-03-26] MEDS ORDERED: DIVALPROEX SOD250 MG PO (08:31)
[2018-03-26] MEDS ORDERED: HYDROXYZINE PAM25 M1 PO (08:31)
[2018-03-26] MEDS ORDERED: MIRTAZAPINE45 MG PO (08:31)
[2018-03-26] MEDS ORDERED: Vitamin D PO (08:31)
[2018-03-26] MEDS ORDERED: PALIPERIDONE ER3 MG PO (08:31)
[2018-03-26] MEDS ORDERED: DIVALPROEX SOD500 MG PO (08:31)
[2018-03-26] MEDS ORDERED: LAMICTAL25 MG PO (08:31)
[2018-03-26] MEDS ORDERED: LACTULOSE20 GM/30 M PO (08:31)
== END 2018-03-26 14:17 | disposition home or self-care (01) | DRG 885 ==
LOC: 3N 15:35
PROVIDERS: Internal Medicine; Psychiatry & Neurology Psychiatry
DX: F31.5 Bipolar disorder, current episode depressed, severe, with psychotic features (principal); N17.0 Acute kidney failure with tubular necrosis; E44.1 Mild protein-calorie malnutrition; D69.6 Thrombocytopenia, unspecified; E87.8 Other disorders of electrolyte and fluid balance, not elsewhere classified; E86.0 Dehydration; G47.00 Insomnia, unspecified; M15.0 Primary generalized (osteo)arthritis; R47.1 Dysarthria and anarthria; M50.23 Other cervical disc displacement, cervicothoracic region; F41.1 Generalized anxiety disorder; K21.9 Gastro-esophageal reflux disease without esophagitis; I10 Essential (primary) hypertension; G89.4 Chronic pain syndrome; Z82.49 Family history of ischemic heart disease and other diseases of the circulatory system; Z88.5 Allergy status to narcotic agent; Z79.899 Other long term (current) drug therapy; Z79.82 Long term (current) use of aspirin

== ENCOUNTER 2022-03-30 17:12 | Inpatient (IN) | payer MEDICARE, OTHER ==
[~2022-03-30] VITALS: Ht 172.7 cm; Wt 100.0 kg
[~2022-03-30 17:12] MED LIST changes: +ATIVAN0.5 MG PO; +COGENTIN0.5 MG PO; +HYDROCHLOROTH12.5 M3 PO; +HYDROXYZINE PAM25 M1 PO; +IRON325 M1 PO; +LACTULOSE20 GM/30 M PO; +LAMICTAL25 MG PO; +LOSARTAN POTASS50 M1 PO; +PALIPERIDONE ER3 MG PO; +REFRESH LIQUIGE15 M1 OP; +REMERON SOLTAB45 MG PO; +REMERON30 M1 PO; +TRIHEXYPHEN2 MG/5 ML PO; +VISTARIL50 MG PO; +Vitamin D PO
[2022-03-30 17:22] VITALS: BP 130/59
[2022-03-30 18:03] LABS: BASO % 0.2 % (0.0-1.0); EOS # 0.1 10*3/uL (0.0-0.4); EOS % 0.9 % (1.0-4.0); HEMATOCRIT 38.5 % (37.0-47.0); LYMPH # 3.1 10*3/uL (1.3-4.4); LYMPH % 47.1 % (27.0-41.0); MEAN CELL VOLUME 95.1 fl (81.0-99.0); MEAN CORPUSCULAR HGB 31.1 pg (27.0-31.0); MEAN CORPUSCULAR HGB CONC 32.7 g/dl (33.0-37.0); MEAN PLATELET VOLUME 9.1 fl (9.6-12.3); MONO # 0.5 10*3/uL (0.1-1.0); MONO % 8.1 % (3.0-9.0); NEUT # 2.9 10*3/uL (2.3-7.9); NEUT % 43.5 % (47.0-73.0); PLATELET COUNT AUTOMATED 187 10*3/uL (130-400); RED BLOOD COUNT 4.05 10*6/uL (4.10-5.10); RED CELL DISTRI WIDTH 13.7 % (0-14.5); WHITE BLOOD COUNT 6.6 10*3/uL (4.8-10.8)
[2022-03-30 18:19] LABS: CREATININE 1.47 mg/dL (0.55-1.02); POTASSIUM 2.6 mmol/L (3.5-5.1); TOTAL PROTEIN 6.8 gm/dL (6.4-8.2)
[2022-03-30 18:22] LABS: ACT PARTIAL THROMBO TIME 23.1 SECONDS (20.0-32.1)
[2022-03-30] MEDS ORDERED: TRAMADOL HCL50 MG PO (21:10)
[2022-03-30] MEDS ORDERED: HYDROCHLOROTHIA25 M1 PO (21:11)
[2022-03-30] MEDS ORDERED: EC NAPROSYN500 MG PO (21:11)
[2022-03-30] MEDS ORDERED: CEFDINIR300 MG PO (21:12)
[2022-03-30] MEDS ORDERED: PANTOPRAZOLE SO40 MG PO (21:12)
[2022-03-30] MEDS ORDERED: LAMOTRIGINE ER50 MG PO (21:13)
[2022-03-30] MEDS ORDERED: LOPRESSOR25 MG PO (21:14)
[2022-03-30] MEDS ORDERED: MIRTAZAPINE30 M2 PO (21:14)
[2022-03-30] MEDS ORDERED: DEPAKOTE DR500 MG PO (21:14)
[2022-03-30] MEDS ORDERED: FEROSUL325 MG PO (21:16)
[2022-03-30] MEDS ORDERED: LOSARTAN POTASS50 M1 PO (21:16)
[2022-03-30] MEDS ORDERED: DAILY VITE1 EACH PO (21:16)
[2022-03-30] MEDS ORDERED: ASPIRIN81 M1 PO (21:17)
[2022-03-30] MEDS ORDERED: PLAVIX75 M1 PO (21:17)
[2022-03-30] MEDS ORDERED: ATORVASTATIN CA10 M1 PO (21:17)
[2022-03-30] MEDS ORDERED: LEADER LORATADI10 MG PO (21:17)
[2022-03-31 00:03] VITALS: BP 113/82
[2022-03-31 00:15] VITALS: BP 134/56
[2022-03-31 04:00] VITALS: BP 128/79
[2022-03-31 06:10] LABS: BASO % 0.3 % (0.0-1.0); EOS # 0.1 10*3/uL (0.0-0.4); EOS % 1.1 % (1.0-4.0); HEMATOCRIT 38.7 % (37.0-47.0); LYMPH # 2.9 10*3/uL (1.3-4.4); LYMPH % 44.7 % (27.0-41.0); MEAN CELL VOLUME 95.1 fl (81.0-99.0); MEAN CORPUSCULAR HGB 31.4 pg (27.0-31.0); MEAN CORPUSCULAR HGB CONC 33.1 g/dl (33.0-37.0); MEAN PLATELET VOLUME 9.5 fl (9.6-12.3); MONO # 0.6 10*3/uL (0.1-1.0); MONO % 8.6 % (3.0-9.0); NEUT # 2.9 10*3/uL (2.3-7.9); PLATELET COUNT AUTOMATED 186 10*3/uL (130-400); RED BLOOD COUNT 4.07 10*6/uL (4.10-5.10); RED CELL DISTRI WIDTH 13.3 % (0-14.5); WHITE BLOOD COUNT 6.4 10*3/uL (4.8-10.8)
[2022-03-31 06:13] LABS: CREATININE 1.25 mg/dL (0.55-1.02); FREE T4 1.13 ng/dl (0.76-1.46); TOTAL PROTEIN 6.3 gm/dL (6.4-8.2)
[2022-03-31 06:19] LABS: THYROID STIM HORMONE (HS) 0.692 uIU/ml (0.358-4.75)
[2022-03-31 06:27] LABS: POTASSIUM 3.6 mmol/L (3.5-5.1)
[2022-03-31 07:45] LABS: VITAMIN D, 25-HYDROXY 59.7 ng/mL (30-100)
[2022-03-31 08:00] VITALS: BP 146/89
[2022-03-31 09:07] LABS: BILIRUBIN Negative (Negative); BLOOD Negative (Negative); CLARITY Cloudy (Clear); COLOR Yellow (Yellow); GLUCOSE Trace (Negative); KETONE Trace (Negative); LEUKO ESTERASE 1+ (Negative); NITRITE Negative (Negative); PH 5.5 (4.5-8.0); SPECIFIC GRAVITY 1.025 (1.001-1.030); UROBILINOGEN 0.2 E.U./dl (0.0-1.0)
[2022-03-31 09:47] LABS: BACTERIA 3+
[2022-03-31] MEDS ORDERED: LAMICTAL25 MG PO (17:11)
[2022-03-31] MEDS ORDERED: DEPAKOTE250 MG PO (17:13)
[2022-03-31] MEDS ORDERED: INVEGA6 MG PO (17:14)
[2022-03-31] MEDS ORDERED: ATIVAN0.5 MG PO (17:14)
[2022-03-31] MEDS ORDERED: TRINTELLIX10 MG PEG (17:15)
[2022-03-31] MEDS ORDERED: VISTARIL50 MG PO (17:16)
[2022-03-31] MEDS ORDERED: VISTARIL50 MG IM (17:17)
[2022-03-31] MEDS ORDERED: GEODON20 MG/1 ML IM (17:20)
== END 2022-03-31 13:50 | DRG 640 ==
LOC: ED → EDHOLD 18:30 → 4E 18:30
PROVIDERS: Emergency Medicine; Student in an Organized Health Care Education/Training Program; ADMIT Internal Medicine; ATTEND Internal Medicine
DX: E87.6 Hypokalemia (principal); N17.0 Acute kidney failure with tubular necrosis; E44.0 Moderate protein-calorie malnutrition; N18.32 Chronic kidney disease, stage 3b; Z20.822 Contact with and (suspected) exposure to COVID-19; I12.9 Hypertensive chronic kidney disease with stage 1 through stage 4 chronic kidney disease, or unspecified chronic kidney disease; E78.5 Hyperlipidemia, unspecified; K21.9 Gastro-esophageal reflux disease without esophagitis; F31.9 Bipolar disorder, unspecified; F20.9 Schizophrenia, unspecified; F41.1 Generalized anxiety disorder; I48.91 Unspecified atrial fibrillation; G89.4 Chronic pain syndrome; M19.90 Unspecified osteoarthritis, unspecified site; R00.1 Bradycardia, unspecified; E87.8 Other disorders of electrolyte and fluid balance, not elsewhere classified; E66.9 Obesity, unspecified; R73.9 Hyperglycemia, unspecified; Z90.49 Acquired absence of other specified parts of digestive tract; Z98.51 Tubal ligation status; Z88.5 Allergy status to narcotic agent; Z82.49 Family history of ischemic heart disease and other diseases of the circulatory system; Z79.899 Other long term (current) drug therapy